=== PATIENT | male | born 1965 | race Caucasian/White ===

== ENCOUNTER 2019-10-01 13:01 | Observation (INO) | payer OTHER ==
[2019-10-01] MEDS ORDERED: SODIUM CHLORIDE 0.9% 500 ML 500 ML IV STA (13:43)
[2019-10-01 14:03] LABS: Basophils % (A) 0 %; Eosinophils % (A) 1 %; HCT 43.7 % (39.0-53.0); HGB 14.6 gm/dL (13.0-17.5); Lymphocytes # (A) 1.6 k/uL (1.0-4.8); Lymphocytes % (A) 22 %; MCHC 33.3 g/dL (31.0-37.0); MCV 89.9 fL (80.0-100.0); Mean Platelet Volume 7.9; Monocytes # (A) 0.5 k/uL (0-1.0); Monocytes % (A) 7 %; Neutrophils % (A) 68 %; Platelet Count 263 k/uL (150-450); RBC 4.86 m/uL (4.30-5.90); RDW 12.1 % (11.5-15.5); WBC 7.4 k/uL (3.8-10.6)
[2019-10-01 14:08] LABS: Partial Thromboplastin Time 22.5 sec (22.0-30.0); Prothrombin Time 10.2 sec (9.0-12.0)
[2019-10-01 14:09] LABS: ALT 23 U/L (4-49); AST 36 U/L (17-59); African American GFR (CKD) >90 (>60 ml/min/1.73 sqM); Albumin 4.5 g/dL (3.5-5.0); Alkaline Phosphatase 85 U/L (38-126); Anion Gap 10 mmol/L; Blood Urea Nitrogen 15 mg/dL (9-20); Calcium 9.1 mg/dL (8.4-10.2); Carbon Dioxide 22 mmol/L (22-30); Chloride 103 mmol/L (98-107); Glucose 117 mg/dL (74-99); Non-African American GFR(CKD) 80 (>60 ml/min/1.73 sqM); Potassium 4.4 mmol/L (3.5-5.1); Sodium 135 mmol/L (137-145); Total Bilirubin 0.6 mg/dL (0.2-1.3); Total Protein 7.3 g/dL (6.3-8.2)
--- NOTE | 2019-10-01 14:18 | ED ---
General Adult HPI - General Chief complaint: Headache Stated complaint: Heartburn Time Seen by Provider: 10/01/19 13:12 Source: patient, RN notes reviewed, old records reviewed Mode of arrival: ambulatory Limitations: no limitations - History of Present Illness Initial comments: 53-year-old male patient with no pertinent past medical history presents to ED for chief complaint of heartburn and headache for the last 3 days. Patient reports that when he gets up and exerts himself he has substernal burning. Reports that he has had heartburn in the past. This has not resolved with Tums like it normally does. He denies any burning at rest. Patient also reports he has had a mild right temporal headache. Once the headaches in this region are typical for him. Denies worst headache of life. Patient does have reports that approximately one year ago he did have a seizure. In the years before that he also reports that he had approximately 3 tonic-clonic seizures. Denies any the last year. Chief complaint is mild headache at this time which began this morning. Denies red flag symptoms. Systemic: Pt denies fatigue, fever/chills, rash. Pt denies weakness, night sweats, weight loss. Neuro: Pt denies visual disturbances, syncope or pre-syncope. HEENT: Pt denies ocular discharge or irritation, otalgia, rhinorrhea, pharyngitis or notable lymphadenopathy. Cardiopulmonary: Pt denies SOB, heart palpitations, dyspnea on exertion. Abdominal/GI: Pt denies abdominal pain, n/v/d. : Pt denies dysuria, burning w/ urination, frequency/urgency. Denies new onset urinary or bowel incontinence. MSK: Pt denies myalgia, loss of strength or function in extremities. Neuro: Pt denies new onset weakness, paresthesias. - Related Data Home Medications Medication Instructions Recorded Confirmed Aspirin/Acetaminophen/Caffeine 2 - 3 tab PO Q4H PRN 10/01/19 10/01/19 [Excedrin Migraine Caplet] Allergies Allergy/AdvReac Type Severity Reaction Status Date / Time naproxen [From Aleve] AdvReac Seizures Verified 10/01/19 15:33 Review of Systems ROS Statement: Those systems with pertinent positive or pertinent negative responses have been documented in the HPI. ROS Other: All systems not noted in ROS Statement are negative. Past Medical History Past Medical History: No Reported History Past Surgical History: No Surgical Hx Reported Past Psychological History: No Psychological Hx Reported Smoking Status: Never smoker Past Alcohol Use History: Occasional Past Drug Use History: Marijuana General Exam - General Exam Comments Initial Comments: Constitutional: NAD, AOX3, Pt has pleasant affect. HEENT: NC/AT, trachea midline, neck supple, no lymphadenopathy. Posterior pharynx non erythematous, without exudates. External ears appear normal, without discharge. Mucous membranes moist. Eyes PERRLA, EOM intact. There is no scleral icterus. No pallor noted. Cardiopulmonary: RRR, no murmurs, rubs or gallops, no JVD noted. Lungs CTAB in anterior and posterior cotto. No peripheral edema. Abdominal exam: Abdomen soft and non-distended. Abdomen non-tender to palpation in all 4 quadrants. Bowel sounds active in LLQ. No hepatosplenomegaly. No e cchymosis Neuro: CN II-XII intact. No nuchal rigidity. No raccon eyes, no acosta sign, no hemotympanum. No cervical spinal tenderness. MSK: No posterior calf tenderness bilaterally, homans sign negative bilaterally. Posterior tibialis and radial pulse +2 bilaterally. Sensation intact in upper and lower extremities. Full active ROM in upper and lower extremities, 5/5 stregnth. Limitations: no limitations Course Vital Signs 10/01/19 10/01/19 10/01/19 13:06 14:03 14:53 Temperature 98.9 F Pulse Rate 91 86 67 Respiratory 18 18 18 Rate Blood Pressure 150/92 149/102 140/85 O2 Sat by Pulse 99 98 99 Oximetry 10/01/19 15:54 Temperature Pulse Rate 73 Respiratory 18 Rate Blood Pressure 151/85 O2 Sat by Pulse 99 Oximetry Medical Decision Making - Medical Decision Making 53-year-old male patient with no pertinent past medical history presents to ED for chief complaint of heartburn and headache for the last 3 days. Patient reports that when he gets up and exerts himself he has substernal burning. Reports that he has had heartburn in the past. This has not resolved with Tums like it normally does. He denies any burning at rest. Patient also reports he has had a mild right temporal headache. Once the headaches in this region are typical for him. Denies worst headache of life. Patient does have reports that approximately one year ago he did have a seizure. In the years before that he also reports that he had approximately 3 tonic-clonic seizures. Denies any the last year. Chief complaint is mild headache at this time which began this morning. Denies red flag symptoms. Patient also has a stable, afebrile. Physical exam demonstrates pathology. Neurologic exam is intact. Left investigations are obtained and are overall unremarkable troponin is negative. EKG is nonischemic. As this discomfort patient expresses exertional do have some concern for underlying cardiac etiology. Patient not experiencing any pain at this time. Patient will be admitted for serial troponins, and cardiology evaluation. Case discussed with Dr. Scott, accepting physician Dr. Zimmerman. - Lab Data Result diagrams: 10/01/19 13:10/01/19 13:20 Lab Results 10/01/19 10/01/19 10/01/19 Range/Units 13:20 13:20 13:20 WBC 7.4 (3.8-10.6) k/uL RBC 4.86 (4.30-5.90) m/uL Hgb 14.6 (13.0-17.5) gm/dL Hct 43.7 (39.0-53.0) % MCV 89.9 (80.0-100.0) fL MCH 30.0 (25.0-35.0) pg MCHC 33.3 (31.0-37.0) g/dL RDW 12.1 (11.5-15.5) % Plt Count 263 (150-450) k/uL Neutrophils % 68 % Lymphocytes % 22 % Monocytes % 7 % Eosinophils % 1 % Basophils % 0 % Neutrophils # 5.0 (1.3-7.7) k/uL Lymphocytes # 1.6 (1.0-4.8) k/uL Monocytes # 0.5 (0-1.0) k/uL Eosinophils # 0.0 (0-0.7) k/uL Basophils # 0.0 (0-0.2) k/uL PT 10.2 (9.0-12.0) sec INR 1.0 (<1.2) APTT 22.5 (22.0-30.0) sec Sodium 135 L (137-145) mmol/L Potassium 4.4 (3.5-5.1) mmol/L Chloride 103 (98-107) mmol/L Carbon Dioxide 22 (22-30) mmol/L Anion Gap 10 mmol/L BUN 15 (9-20) mg/dL Creatinine 1.06 (0.66-1.25) mg/dL Est GFR (CKD-EPI)AfAm >90 (>60 ml/min/1.73 sqM) Est GFR (CKD-EPI)NonAf 80 (>60 ml/min/1.73 sqM) Glucose 117 H (74-99) mg/dL Calcium 9.1 (8.4-10.2) mg/dL Magnesium 2.0 (1.6-2.3) mg/dL Total Bilirubin 0.6 (0.2-1.3) mg/dL AST 36 (17-59) U/L ALT 23 (4-49) U/L Alkaline Phosphatase 85 (38-126) U/L Troponin I (0.000-0.034) ng/mL NT-Pro-B Natriuret Pep pg/mL Total Protein 7.3 (6.3-8.2) g/dL Albumin 4.5 (3.5-5.0) g/dL 10/01/19 10/01/19 Range/Units 13:20 13:20 WBC (3.8-10.6) k/uL RBC (4.30-5.90) m/uL Hgb (13.0-17.5) gm/dL Hct (39.0-53.0) % MCV (80.0-100.0) fL MCH (25.0-35.0) pg MCHC (31.0-37.0) g/dL RDW (11.5-15.5) % Plt Count (150-450) k/uL Neutrophils % % Lymphocytes % % Monocytes % % Eosinophils % % Basophils % % Neutrophils # (1.3-7.7) k/uL Lymphocytes # (1.0-4.8) k/uL Monocytes # (0-1.0) k/uL Eosinophils # (0-0.7) k/uL Basophils # (0-0.2) k/uL PT (9.0-12.0) sec INR (<1.2) APTT (22.0-30.0) sec Sodium (137-145) mmol/L Potassium (3.5-5.1) mmol/L Chloride (98-107) mmol/L Carbon Dioxide (22-30) mmol/L Anion Gap mmol/L BUN (9-20) mg/dL Creatinine (0.66-1.25) mg/dL Est GFR (CKD-EPI)AfAm (>60 ml/min/1.73 sqM) Est GFR (CKD-EPI)NonAf (>60 ml/min/1.73 sqM) Glucose (74-99) mg/dL Calcium (8.4-10.2) mg/dL Magnesium (1.6-2.3) mg/dL Total Bilirubin (0.2-1.3) mg/dL AST (17-59) U/L ALT (4-49) U/L Alkaline Phosphatase (38-126) U/L Troponin I <0.012 (0.000-0.034) ng/mL NT-Pro-B Natriuret Pep 45 pg/mL Total Protein (6.3-8.2) g/dL Albumin (3.5-5.0) g/dL - EKG Data -: EKG Interpreted by Me (and Dr. Scott) EKG Comments: Ventricular rate 73, pulse 140, QRS 80, QT/QTC 348/48. Normal sinus rhythm, normal EKG, no concern for acute ischemia. Disposition Clinical Impression: Chest pain, Headache Disposition: ADMITTED IP TO THIS HOSP Condition: Fair Is patient prescribed a controlled substance at d/c from ED?: No Referrals: None,Stated [Primary Care Provider] - 1-2 days
[2019-10-01] MEDS ORDERED: MORPHINE SULFATE 4 MG/ML SYRINGE IV STA (14:56)
--- NOTE | 2019-10-01 15:10 | CT ---
EXAMINATION TYPE: CT brain wo con DATE OF EXAM: 10/01/2019 COMPARISON: None INDICATION: HAY DLP: 1068.4 mGycm, Automated exposure control for dose reduction was used. CONTRAST: None CT of the brain is performed utilizing 3 mm thick sections through the posterior fossa and 3 mm thick sections through the remaining calvarium. Study is performed within 24 hours of arrival to the hosp [facility]. No abnormal hyperdensity is present to suggest an acute intracranial hemorrhage. No mass lesion is evident. No acute infarcts are evident. Ventricles and sulci are appropriate for the patient age. Paranasal sinuses and mastoid air cells within the [id number] are clear. IMPRESSIONS: 1. Normal CT Brain
[2019-10-01] MEDS ORDERED: ASPIRIN 325 MG TAB PO STA (15:30)
--- NOTE | 2019-10-01 15:33 | XR ---
EXAMINATION TYPE: XR chest 2V DATE OF EXAM: 10/01/2019 COMPARISON: None INDICATION: Chest pain, headaches TECHNIQUE: Frontal and lateral views of the chest are obtained. FINDINGS: The heart size is normal. The pulmonary vasculature is normal. The lungs are clear. IMPRESSION: 1. No acute pulmonary process.
[2019-10-01] MEDS ORDERED: NITROGLYCERIN SL TABS 0.4 MG TAB SUBLINGUAL PRN (16:22)
[2019-10-01] MEDS: PANTOPRAZOLE 40 MG TABLET PO SCH (17:57)
[2019-10-01] MEDS ORDERED: HYDROcodone/APAP 5-325MG 1 EACH TAB PO PRN (18:50)
--- NOTE | 2019-10-01 23:53 | P.HPIM ---
History of Present Illness H&P Date: 10/01/19 Chief Complaint: Chest pain Patient is a 53-year-old male without significant past medical history came to ER with the complaints of epigastric abdominal pain and chest pain as well as headache for the past 3 to 4 days. Patient states that pain gets worse with megan d intake and also lying to the right side. Associated with nausea no episodes of vomiting. Does have headache no dizziness or lightheadedness. Pain is radiating from epigastric region up to the neck sometimes. Denied any radiation to the arm or to the back or to the jaws. No prior history of coronary artery disease. Burning type pain. No palpitations. No leg swelling. No prior history of coronary artery disease. Patient has been taking Tums at home which normally resolves with that. No fever no chills. No cough or sputum production. Denied any focal weakness. Patient says that 1 year back he had tonic-clonic seizures after taking Aleve. Since then has not been taking any [id number] pain medications. CT head showed no acute intracranial process. Chest x-ray showed no acute pulmonary process EKG showed normal sinus rhythm. Laboratory data reviewed. Troponin x2- BNP 45 Review of Systems Constitutional: Patient denies any fever or chills . No generalized weakness or weight loss. Abdomen: Patient denied nausea vomiting and diarrhea and abdominal pain. Cardiovascular: Patient denies any chest pain or short of breath no palpitations.Burning epigastric pain. Respiratory: patient denied any cough is from production. No shortness of breath Neurologic: Patient denied any numbness or tingling. Patient does have dizziness and headache and ringing ears. Musculoskeletal: Patient denies any complaints of joint swelling or deformity. Skin: Negative Psychiatric: Negative Endocrine: No heat or cold intolerance. No recent weight gain. Genitourinary: No dysuria or hematuria. All other 14 point ROS negative except the above Past Medical History Past Medical History: No Reported History History of Any Multi-Drug Resistant Organisms: None Reported Past Surgical History: No Surgical Hx Reported Past Psychological History: No Psychological Hx Reported Smoking Status: Former smoker Past Alcohol Use History: Occasional Past Drug Use History: Marijuana Medications and Allergies Home Medications Medication Instructions Recorded Confirmed Type Aspirin/Acetaminophen/Caffeine 2 - 3 tab PO Q4H PRN 10/01/19 10/01/19 History [Excedrin Migraine Caplet] Allergies Allergy/AdvReac Type Severity Reaction Status Date / Time naproxen [From Aleve] AdvReac Seizures Verified 10/01/19 15:33 Physical Exam Vitals: Vital Signs Temp Pulse Pulse Resp BP BP Pulse Ox 10/01/19 20:00 98.2 F 73 17 141/70 97 10/01/19 17:13 98.6 F 67 18 128/84 98 10/01/19 16:56 66 18 126/84 98 10/01/19 15:54 73 18 151/85 99 10/01/19 14:53 67 18 140/85 99 10/01/19 14:03 86 18 149/102 98 10/01/19 13:06 98.9 F 91 18 150/92 99 Intake and Output 10/01/19 10/01/19 10/02/19 14:59 22:59 06:59 Other: Weight 63.503 kg 63.503 kg PHYSICAL EXAMINATION: Patient is lying in the bed comfortably, no acute distress, awake alert and oriented.. HEENT: Normocephalic. Neck is supple. Pupils reactive. Nostrils clear. Oral cavity is moist. Ears reveal no drainage. Neck reveals no JVD, carotid bruits, or thyromegaly. CHEST EXAMINATION: Trachea is central. Symmetrical expansion. Lung cotto clear to auscultation and percussion. CARDIAC: Normal S1, S2 with no gallops. No murmurs ABDOMEN: Soft. Bowel sounds normal. No organomegaly. No abdominal bruits. Extremities: reveal no edema. No clubbing or cyanosis Neurologically awake, alert, oriented x3 with well-coordinated movements. No focal deficits noted Skin: No rash or skin lesions. Psychiatric: Coperative. Nonsuicidal Musculoskeletal: No joint swelling or deformity. Normal range of motion. Results CBC & Chem 7: 10/01/19 13:20 10/01/19 13:20 Labs: Abnormal Lab Results - Last 24 Hours (Table) 10/01/19 Range/Units 13:20 Sodium 135 L (137-145) mmol/L Glucose 117 H (74-99) mg/dL Thrombosis Risk Factor Assmnt - DVT/VTE Prophylaxis DVT/VTE Prophylaxis: Pharmacologic Prophylaxis ordered - Choose All That Apply Each Factor Represents 1 point: Age 41-60 years Thrombosis Risk Factor Assessment Total Risk Factor Score: 1 Thrombosis Risk Factor Assessment Level: Low Risk Assessment and Plan Assessment: Epigastric abdominal pain and burning chest pain likely due to gastritis and possible esophagitis. Rule out ACS. History of smoking and marijuana use denies any recent use. History of seizures. Currently not on any medication DVT prophylaxis Plan: Patient will be continued on telemetry monitoring. Serial troponins and EKGs. Will start on Protonix 40 mg twice daily and monitor closely. Cardiology was consulted. Further recommendations based on clinical course.
[2019-10-02 06:00] LABS: Cholesterol 217 mg/dL (<200); HDL Cholesterol 44 mg/dL (40-60); LDL Cholesterol,Calculated 153 mg/dL (0-99); Triglycerides 100 mg/dL (<150)
[2019-10-02] MEDS: PANTOPRAZOLE 40 MG TABLET PO SCH (06:27)
[2019-10-02] MEDS ORDERED: ASPIRIN 325 MG TAB PO SCH (09:00)
[2019-10-02 09:23] VITALS: RESP 18
--- NOTE | 2019-10-02 11:49 | P.CRDCN ---
History of Present Illness Consult date: 10/02/19 Requesting physician: Destin Zimmerman Consult reason: chest pain Chief complaint: Chest pain and headache History of present illness: This is a 53-year-old gentleman with no prior documented history of hypertension, no hyperlipidemia, nondiabetic, questionable history of seizures in the past, who presented to the hospital with symptoms of chest discomfort which she described as a heartburn sensation. He's been experiencing the symptoms off and on for 3 days. Symptoms occur mostly with exertion according to the patient. He did take some Tums with no relief of symptoms. Patient also complains of a moderate to severe headache on arrival here. The CT of the brain performed was negative, chest x-ray did not show any acute process. His EKG showed a normal sinus rhythm with no acute changes. Blood pressure 130/80, heart rate in the 60s, respirations 17, afebrile. 98% on room air. White blood cell count 7.4, hemoglobin 14.6, platelet count 263. Sodium 135, potassium 4.4, BUN 15 and creatinine 1.0. Troponins were negative 3. Cholesterol 217, LDL 153, HDL 44 and triglycerides 100. At the time of examination this morning the patient is currently chest pain-free. Mccallum virus testing has been performed and is yet pending. Past Medical History Past Medical History: No Reported History History of Any Multi-Drug Resistant Organisms: None Reported Past Surgical History: No Surgical Hx Reported Past Psychological History: No Psychological Hx Reported Smoking Status: Former smoker Past Alcohol Use History: Occasional Past Drug Use History: Marijuana Medications and Allergies Home Medications Medication Instructions Recorded Confirmed Type Aspirin/Acetaminophen/Caffeine 2 - 3 tab PO Q4H PRN 10/01/19 10/01/19 History [Excedrin Migraine Caplet] Allergies Allergy/AdvReac Type Severity Reaction Status Date / Time naproxen [From Aleve] AdvReac Seizures Verified 10/01/19 15:33 Physical Exam Vitals: Vital Signs Temp Pulse Pulse Resp BP BP Pulse Ox 10/02/19 08:00 97.7 F 88 18 108/58 98 10/02/19 04:00 97.9 F 64 17 130/80 98 10/01/19 23:55 98 F 77 17 117/62 97 10/01/19 20:00 98.2 F 73 17 141/70 97 10/01/19 17:13 98.6 F 67 18 128/84 98 10/01/19 16:56 66 18 126/84 98 10/01/19 15:54 73 18 151/85 99 10/01/19 14:53 67 18 140/85 99 10/01/19 14:03 86 18 149/102 98 10/01/19 13:06 98.9 F 91 18 150/92 99 Intake and Output 10/01/19 10/02/19 10/02/19 22:59 06:59 14:59 Other: # Voids 2 Weight 63.503 kg 71.4 kg PHYSICAL EXAMINATION: GENERAL: 53-year-old gentleman in no acute distress at the time of my examination HEENT: Head is atraumatic, normocephalic. Pupils equal, round. Sclera anicteric. Conjunctiva are clear. Mucous membranes of the mouth are moist. Neck is supple. There is no elevated jugular venous pressure. No carotid bruit is heard. HEART EXAMINATION: Heart S1, S2 normal. No murmur or gallop heard. CHEST EXAMINATION: Lungs are clear to auscultation and precussion. No chest wall tenderness is noted on palpation or with deep breathing. ABDOMEN: Soft, nontender. Bowel sounds are heard. No organomegaly noted. EXTREMITIES: 2+ peripheral pulses with no evidence of peripheral edema and no calf tenderness noted. NEUROLOGIC patient is awake, alert and oriented 3 . Results 10/01/19 13:20 10/01/19 13: Cardiac Enzymes 10/01/19 10/01/19 10/01/19 Range/Units : 13:20 19:08 AST 36 (17-59) U/L Troponin I <0.012 <0.012 (0.000-0.034) ng/mL 10/02/19 Range/Units 02:07 AST (17-59) U/L Troponin I <0.012 (0.000-0.034) ng/mL Coagulation 10/01/19 Range/Units : PT 10.2 (9.0-12.0) sec APTT 22.5 (22.0-30.0) sec Lipids 10/02/19 Range/Units 02:07 Triglycerides 100 (<150) mg/dL Cholesterol 217 H (<200) mg/dL HDL Cholesterol 44 (40-60) mg/dL CBC 10/01/19 Range/Units 13:20 WBC 7.4 (3.8-10.6) k/uL RBC 4.86 (4.30-5.90) m/uL Hgb 14.6 (13.0-17.5) gm/dL Hct 43.7 (39.0-53.0) % Plt Count 263 (150-450) k/uL Comprehensive Metabolic Panel 10/01/19 Range/Units 13:20 Sodium 135 L (137-145) mmol/L Potassium 4.4 (3.5-5.1) mmol/L Chloride 103 (98-107) mmol/L Carbon Dioxide 22 (22-30) mmol/L BUN 15 (9-20) mg/dL Creatinine 1.06 (0.66-1.25) mg/dL Glucose 117 H (74-99) mg/dL Calcium 9.1 (8.4-10.2) mg/dL AST 36 (17-59) U/L ALT 23 (4-49) U/L Alkaline Phosphatase 85 (38-126) U/L Total Protein 7.3 (6.3-8.2) g/dL Albumin 4.5 (3.5-5.0) g/dL Current Medications Generic Name Dose Route Start Last Admin Trade Name Freq PRN Reason Stop Dose Admin Hydrocodone Bitart/Acetaminophen 1 each 10/01/19 18:50 10/01/19 19:44 [place] 5-325 PO 1 each Q6HR PRN Administration Pain Aspirin 325 mg 10/02/19 09:00 10/02/19 08:19 Aspirin PO 325 mg DAILY CORY Administration Nitroglycerin 0.4 mg 10/01/19 16:22 Nitrostat SUBLINGUAL Q5M PRN Chest Pain Pantoprazole Sodium 40 mg 10/01/19 17:30 10/02/19 06:27 Protonix PO 40 mg AC-BID CORY Administration Intake and Output 10/01/19 10/02/19 10/02/19 22:59 06:59 14:59 Other: # Voids 2 Weight 63.503 kg 71.4 kg 10/01/19 13:20 10/01/19 13:20 EKG Interpretations (text) EKG shows a normal sinus rhythm with no acute changes. Assessment and Plan Plan: Assessment and plan #1 chest pain, atypical for acute coronary syndrome, troponins negative 3, EKG shows a normal sinus rhythm with no acute changes. #2 moderate to severe headaches Plan We will obtain an echocardiogram with Doppler study. Patient has also been advised to undergo stress echocardiographic study today. If those are negative then from cardiology's perspective the patient may be able to be discharged home. We will make a follow-up appointment in the office post discharge. DNP note has been reviewed, I agree with a documented findings and plan of care. Patient was seen and examined.
--- NOTE | 2019-10-02 11:55 | ECHOF ---
Referral Reason:chf MEASUREMENTS -------- HEIGHT: 172.7 cm WEIGHT: 71.2 kg BP: 130/80 RVIDd: 2.9 cm (< 3.3) IVSd: 0.9 cm (0.6 - 1.1) LVIDd: 4.4 cm (3.9 - 5.3) LVPWd: 1.0 cm (0.6 - 1.1) IVSs: 1.5 cm LVIDs: 2.9 cm LVPWs: 1.5 cm LA Diam: 2.6 cm (2.7 - 3.8) Ao Diam: 2.9 cm (2.0 - 3.7) AV Cusp: 2.0 cm (1.5 - 2.6) MV EXCURSION: 14.881 mm (> 18.000) MV EF SLOPE: 118 mm/s (70 - 150) EPSS: 0.4 cm MV E Sushant: 0.80 m/s MV DecT: 271 ms MV A Sushant: 0.74 m/s MV E/A Ratio: 1.08 FINDINGS -------- Sinus rhythm. This was a technically adequate study. The left ventricular size is normal. Left ventricular wall thickness is normal. Overall left vent ricular systolic function is normal with, an EF between 60 - 65 %. The right ventricle is normal in size. The left atrial size is normal. The right atrium is normal in size. Interatrial and interventricular septum intact. The aortic valve is trileaflet and appears structurally normal. The mitral valve leaflets are mildly thickened. The tricuspid valve appears structurally normal. Trace/mild (physiologic) pulmonic regurgitation. The aortic root size is normal. Normal inferior vena cava with normal inspiratory collapse consistent with estimated right atrial pre ssure of 5 mmHg. There is no pericardial effusion. CONCLUSIONS -------- 1. Sinus rhythm. 2. This was a technically adequate study. 3. The left ventricular size is normal. 4. Left ventricular wall thickness is normal. 5. Overall left ventricular systolic function is normal with, an EF between 60 - 65 %. 6. The right ventricle is normal in size. 7. The left atrial size is normal. 8. The right atrium is normal in size. 9. Interatrial and interventricular septum intact. 10. The aortic valve is trileaflet and appears structurally normal. 11. The mitral valve leaflets are mildly thickened. 12. The tricuspid valve appears structurally normal. 13. Trace/mild (physiologic) pulmonic regurgitation. 14. The aortic root size is normal. 15. Normal inferior vena cava with normal inspiratory collapse consistent with estimated right atrial pressure of 5 mmHg. 16. There is no pericardial effusion. PROP MAKER: Ewa Jones RDCS
[2019-10-02 12:53] VITALS: BP 112/62; PULSE 89; TEMP 97.9
--- NOTE | 2019-10-02 12:58 | EST ---
EXERCISE STRESS DATE OF SERVICE: 10/02/2019. AGE: 53 SEX: M HT: 5'8" WT: 167 lbs PROTOCOL: Stress Echo STAGE: 4 DURATION OF EXERCISE: 9:48 minutes HEART RATE REST: 59 BLOOD PRESSURE REST: 125/66 MAXIMUM HEART RATE ACHIEVED: 158 MAXIMUM BLOOD PRESSURE: 196/90 85% MPHR: 142 100% MPHR: 167 METS: INDICATIONS: Chest pain. RESULTS: Baseline EKG revealed normal sinus rhythm without significant ST-T changes. Patient walked for 9 minutes 48 seconds achieved a maximal heart rate of 158 beats per minute which is more than 85% of predicted maximal. He developed fatigue, shortness of breath but did not have any angina or arrhythmia. EKG did not reveal any ST-segment changes to indicate ischemia. Baseline echo images revealed normal wall motion wall thickening of all segments. At peak exercise there was good augmentation of left ventricular wall motion and wall thickening of all segments suggesting that there is no evidence of stress-induced ischemia. FINAL IMPRESSION: 1. Good exercise capacity with a negative stress test by EKG criteria. 2. Normal stress echocardiogram without evidence of ischemia. MMODL / IJN: [id number] /
--- NOTE | 2019-10-02 14:51 | P.DS ---
Providers Date of admission: 10/01/19 16:55 Expected date of discharge: 10/02/19 Attending physician: Destin Zimmerman Consults: 10/01/19 16:22 Consult Physician Stat Consulting Provider: Leydi Short Consult Reason/Comments: hx of seizure 1 yr ago, no prior workup or neurology evaluation Do you want consulting provider notified?: Yes 10/01/19 16:23 Consult Physician Urgent Consulting Provider: Esau Rooney Consult Reason/Comments: chest pain Do you want consulting provider notified?: Yes Primary care physician: Stated None Hospital Course: Final diagnosis Epigastric abdominal pain and burning chest pain likely due to gastritis and possible esophagitis. Ruled out ACS. History of smoking and marijuana use denies any recent use. History of seizures DVT prophylaxis Discharge disposition Patient is being discharged in a stable condition with guarded prognosis to home and will need to follow-up with primary care provider along with cardiology and neurology in the outpatient setting. Patient will continue on Protonix 40 mg for the next 4 weeks. Total time taken is 35 minutes. History of present illness This is a 53-year-old male who was recently admitted with epigastric abdominal pain and chest pain along with headache and was being closely monitored. Cardiology was consulted and underwent stress echo which was negative. Patient does have a slight headache and neurology was consulted as patient states he has a history of seizures after taking Aleve although not currently taking any medications and has not had a neurology follow-up. Patient underwent EEG during hospitalization which is pending at this time. Patient will need neurology follow-up in the outpatient setting. She will also need to follow-up with cardiology in the outpatient setting as well. Patient will continue on Protonix 40 mg twice daily for the next 4 weeks. Currently no reports of chest pain, shortness of breath, or palpitations. Patient is afebrile. No reports of nausea or vomiting and patient is tolerating diet. Patient underwent a CT of the head showing no intracranial process and chest x-ray showing no acute pulmonary process. Negative troponins. On exam vital signs are stable. Temp is 97.9F, pulse is 89, respirations are 18, blood pressure is 112/62, oxygen saturation is 99% on room air. Cardio S1, S2 are present. Respiratory system shows clear to auscultation. Abdomen is soft and nontender. Nervous system shows no focal deficits. Please refer to medication reconciliation sheet for a list of medications. Patient Condition at Discharge: Fair Plan - Discharge Summary New Discharge Prescriptions: New Pantoprazole [Protonix] 40 mg PO AC-BID 30 Days #60 tablet. Continue Aspirin/Acetaminophen/Caffeine [Excedrin Migraine Caplet] 2 - 3 tab PO Q4H PRN PRN Reason: Migraine Headache Discharge Medication List Aspirin/Acetaminophen/Caffeine [Excedrin Migraine Caplet] 2 - 3 tab PO Q4H PRN 10/01/19 [History] Pantoprazole [Protonix] 40 mg PO AC-BID 30 Days #60 tablet. 10/02/19 [Rx] Follow up Appointment(s)/Referral(s): Mehnaz Faye MD [REFERRING] - 1 Week Sarah Mars MD [Medical Doctor] - 2 Weeks None,Stated [Primary Care Provider] - 1-2 days Esau Rooney MD [STAFF PHYSICIAN] - 2 Weeks Activity/Diet/Wound Care/Special Instructions: Activity Limited until follow-up Follow-up and establish with a primary care provider Continue current diet Follow-up with cardiology in the outpatient setting Follow-up with neurology in the outpatient setting Continue with Protonix 40 mg twice daily for the next 4 weeks Discharge Disposition: HOME SELF-CARE
--- NOTE | 2019-10-02 15:13 | P.CNNES ---
History of Present Illness Consult date: 10/02/19 Requesting physician: Octaviano Navarro Reason for Consult: History of seizure 1 year ago, no prior workup or neurology evaluation. History of Present Illness: Patient is a 53-year-old male, who came to the ER yesterday for heartburn and headache for the last 3 days. Patient states he has been suffering from headaches all his life. When he was younger, he was told that he will outgrow it, but he continues to have periodic headaches. He says that he gets headache about once a month or once every other month, that can last for couple hours to 12 hours. Patient takes OTC medication and has not taken any prescription medications for these headaches. Neurology was actually consulted for his history of possible seizures. Patient tells me that he has history of 5 seizures in his lifetime. He had 3 seizures in 2014 and 2 seizures in 2018 and the last seizure was in January 2019. All of these seizures occurred while he was awake. 4 of them and he was sitting and once when he was standing up. Patient states that without any warning he just loses consciousness when he comes to, he feels flushed, the wi tnesses are trying to help him at that time. Patient denies any tongue bite or urinary incontinence. Patient was told that he convulses with the seizures. Patient has never seen a neurologist. Patient has found out that each time that he has these seizures, he was taking Aleve. He looked at the medication information and there is some report of possible seizures from Aleve. Since he stopped Aleve, he has not had any seizure. Even from 2014 to 2018 when he did not have any seizures he was not taking Aleve. Patient had a normal computed tomography scan of the head, EKG, chest x-ray. 2-D echo showed sinus rhythm. EF is 60-65%. Left atrial size is normal. Left ventricular size is normal. Patient's cholesterol is 2017, LDL 153, HDL 44 and triglycerides 100. Review of Systems Completely unremarkable except for some headaches. No headache at this time. All 14 point of review of systems negative. Past Medical History Past Medical History: No Reported History History of Any Multi-Drug Resistant Organisms: None Reported Past Surgical History: No Surgical Hx Reported Past Psychological History: No Psychological Hx Reported Smoking Status: Former smoker Past Alcohol Use History: Occasional Past Drug Use History: Marijuana Medications and Allergies Home Medications Medication Instructions Recorded Confirmed Type Aspirin/Acetaminophen/Caffeine 2 - 3 tab PO Q4H PRN 10/01/19 10/01/19 History [Excedrin Migraine Caplet] Pantoprazole [Protonix] 40 mg PO AC-BID 30 Days #60 10/02/19 Rx tablet.dr Allergies Allergy/AdvReac Type Severity Reaction Status Date / Time naproxen [From Aleve] AdvReac Seizures Verified 10/01/19 15:33 Physical Examination - Vital Signs Vital Signs: Vital Signs Temp Pulse Pulse Resp BP BP Pulse Ox 10/02/19 12:00 97.9 F 89 18 112/62 99 10/02/19 08:00 97.7 F 88 18 108/58 98 10/02/19 04:00 97.9 F 64 17 130/80 98 10/01/19 23:55 98 F 77 17 117/62 97 10/01/19 20:00 98.2 F 73 17 141/70 97 10/01/19 17:13 98.6 F 67 18 128/84 98 10/01/19 16:56 66 18 126/84 98 10/01/19 15:54 73 18 151/85 99 Intake and Output 10/01/19 10/02/19 10/02/19 22:59 06:59 14:59 Other: # Voids 2 Weight 63.503 kg 71.4 kg 71.4 kg On examination patient is a middle aged male, in no distress. Patient is alert and awake oriented to time place and person. Speech and language functions, recent and remote memory normal. Attention and concentration fund of knowledge is adequate. On cranial nerve examination pupils are round and reactive to light. Visual cotto are full. Extraocular muscles are intact with no nystagmus. Face is symmetric, tongue protrudes to the midline. Palatal elevation and sensation normal. Hearing and shoulder shrug normal. On muscle strength testing there is no pronator drift and the strength is completely normal in the arms and legs distally and proximally. Deep tendon reflexes are 1+ on to 2+ and plantars are downgoing. sensory touch is equal, no ataxia for [id number] testing. Tone and bulk of muscles normal. No bruit or murmur peripheral pulses present abdomen soft nontender. Results - Laboratory Findings CBC and BMP: 10/01/19:20 10/01/19 13:20 Abnormal Lab Findings: Abnormal Labs 10/01/19 10/02/19 13:20 02:07 Sodium 135 L Glucose 117 H Cholesterol 217 H LDL Cholesterol, Calc 153 H Assessment and Plan Assessment: * Migraine without aura. * History of recurrent seizures in the past (total 5). He believes all seizures occurred while he was taking Aleve and was a side effect of Aleve. Plan: * Patient believes his seizures in the past were due to side effects of Aleve. I'm not sure about it. Patient had an EEG performed today, which was normal. No epileptiform activity was seen. At this point, patient has not had any seizures since January 2019. He is not a candidate for antiepileptic med ication. Patient was however told that he should follow-up with a neurologist for further evaluation, that would include a 24 hours ambulatory EEG and perhaps an MRI as an outpatient. Patient was informed to avoid seizure triggers, like alcohol, sleep deprivation or use of any medication that lowers seizure threshold. * Patient has not had any seizures since the last 6 months, therefore he is blanca hnically okay to drive. However if he has any seizure, he was informed of the [place] state law of no driving for 6 months following a seizure. He has to be seizure free for 6 months in order to drive a motor vehicle. He should not climb ladders, operate dangerous machinery or unsupervised swimming (at least for 6 months following any seizure). * Regarding migraines, he will be given prescription of Fioricet as needed. His periodic migraines can also be managed by a neurologist as an outpatient. * Neurologically clear for discharge.
--- NOTE | 2019-10-02 15:19 | EEG ---
ELECTROENCEPHALOGRAM REPORT DATE OF SERVICE: 10/02/2019 PREAMBLE: This is a 53-year-old male with a previous history of seizure disorder. He has history of 5 seizures in the past. This study is performed to evaluate for any epileptiform activity. EEG FINDINGS: A 21 channel routine EEG recording in a patient utilizing 10/20 international system with bipolar and referential montages. The background consists of well developed, well regulated, moderate voltage activity and 9-10 Hz alpha. Background is posterior dominant and is reactive to eye opening and closing. Photic driving response was not seen. Thyroid showed drowsiness was seen with appearance of bilaterally symmetric theta frequency rhythm. Brief stage 2 sleep was seen. No definitive focal or generalized epileptiform activity was seen. EKG rhythm lead revealed no obvious arrhythmia. IMPRESSION: This is a normal EEG during wakefulness, drowsiness and brief stage 2 sleep. Normal EEG does not rule out seizure disorder. If your suspicion for seizures is high, suggest a prolonged, sleep-deprived EEG. MMODL / IJN: [id number] / [facility]
== END 2019-10-02 16:04 | disposition home or self-care (01) ==
LOC: EC 13:01 → 3SCARD 16:55
PROVIDERS: ADMIT Internal Medicine; ATTEND Internal Medicine
DX: G43.009 Migraine without aura, not intractable, without status migrainosus (principal); R10.13 Epigastric pain; I10 Essential (primary) hypertension; G40.89 Other seizures; Z03.818 Encounter for observation for suspected exposure to other biological agents ruled out; Z87.891 Personal history of nicotine dependence; Z88.6 Allergy status to analgesic agent
CPT/HCPCS: 93005 ×2; 96374; 99285; 36415; 95819; 93306; 93351; 83880; 80061; 80053; 83735; 84484 ×2; 85025; 85610; 85730; 87635; 71046; 70450; G0378 ×2; J2270